=== PATIENT | female | born 1965 | race Caucasian/White ===

== ENCOUNTER 2020-01-01 15:00 | Outpatient (RCR) | payer MEDICARE, SELFPAY ==
[2019-10-07 10:57] VITALS: BMI 22.7
[2019-10-07 11:05] VITALS: BMI 22.7
[2019-12-04 12:56] VITALS: BMI 22.7
[2019-12-04 12:59] VITALS: BMI 22.7
== END 2020-01-05 23:59 | disposition home or self-care (01) ==
LOC: ANHDMC 15:00
PROVIDERS: Visit Provider Nurse Practitioner Adult Health
DX: E11.65 Type 2 diabetes mellitus with hyperglycemia (principal); Z71.3 Dietary counseling and surveillance; Z71.89 Other specified counseling
CPT/HCPCS: 97802; 97803; G0108

== ENCOUNTER 2020-02-24 15:15 | Outpatient (RCR) | payer MEDICARE, SELFPAY | END 2020-02-24 16:52 | disposition home or self-care (01) | LOC: ANHDMC 15:15 | PROVIDERS: Visit Provider Nurse Practitioner Adult Health | DX: E11.65 Type 2 diabetes mellitus with hyperglycemia (principal); Z71.89 Other specified counseling | CPT/HCPCS: G0108 ==

== ENCOUNTER 2020-08-31 10:59 | Outpatient (RCR) | payer MEDICARE, SELFPAY | END 2020-10-12 11:14 | disposition home or self-care (01) | LOC: ANHDMC 10:59 | PROVIDERS: PCP Nurse Practitioner Adult Health; Visit Provider Internal Medicine Endocrinology, Diabetes & Metabolism | DX: E11.65 Type 2 diabetes mellitus with hyperglycemia (principal); Z71.89 Other specified counseling | CPT/HCPCS: G0108 ==

== ENCOUNTER 2023-03-16 10:17 | Outpatient (RCR) | payer MEDICARE, MEDICAID, SELFPAY | END 2023-06-04 10:06 | disposition home or self-care (01) | LOC: ANHDMC 10:17 | PROVIDERS: PCP Family Medicine; Visit Provider Internal Medicine | DX: E11.69 Type 2 diabetes mellitus with other specified complication (principal); E11.65 Type 2 diabetes mellitus with hyperglycemia; E66.9 Obesity, unspecified; Z71.89 Other specified counseling | CPT/HCPCS: G0108 ==

== ENCOUNTER 2023-05-09 15:28 | Outpatient (CLI) | payer MEDICARE, MEDICAID, SELFPAY ==
[2023-05-09 19:28] LABS: Alanine Aminotransferase 33 U/L (6-35); Alkaline Phosphatase 64 U/L (38-126); Anion Gap 6 mmol/L (8-16); Aspartate Amino Transferase 39 U/L (14-36); Bilirubin,Total 0.7 mg/dL (0.2-1.3); Blood Urea Nitrogen 25 mg/dL (7-17); Calcium 9.2 mg/dL (8.4-10.2); Carbon Dioxide 31 mmol/L (22-30); Chloride 104 mmol/L (98-107); Estimated Glomerular Filt Rate 46; Glucose 135 mg/dL (65-110); Potassium 4.3 mmol/L (3.4-5.0); Sodium 141 mmol/L (137-145)
[2023-05-09 20:22] LABS: Free T4 Free Thyroxine 1.89 ng/mL (0.78-2.19)
== END 2023-05-09 15:29 | disposition home or self-care (01) ==
LOC: ANHWCLAB 15:28
PROVIDERS: PCP Family Medicine; Visit Provider Internal Medicine
DX: E11.69 Type 2 diabetes mellitus with other specified complication (principal); E66.9 Obesity, unspecified
CPT/HCPCS: 36415; 80053; 84439; 84443

== ENCOUNTER 2023-08-14 15:26 | Outpatient (CLI) | payer MEDICARE, MEDICAID, SELFPAY ==
[2023-08-14 16:56] LABS: Thyroid Stimulating Hormone < 0.015 uIU/mL (0.465-4.680)
[2023-08-14 17:50] LABS: Free T4 Free Thyroxine 4.36 ng/mL (0.78-2.19)
== END 2023-08-14 15:27 | disposition home or self-care (01) ==
LOC: ANHLAB 15:29
PROVIDERS: PCP Family Medicine; Visit Provider Internal Medicine
DX: E11.69 Type 2 diabetes mellitus with other specified complication (principal); E66.9 Obesity, unspecified
CPT/HCPCS: 36415; 84439; 84443